=== PATIENT | female | born 1975 | race Caucasian/White ===

== ENCOUNTER 2019-04-10 14:57 | Emergency (ER) | payer MEDICAID, OTHER ==
[~2019-04-10] VITALS: Ht 154.9 cm; Wt 76.2 kg
--- NOTE | 2019-04-10 15:42 | NUR ---
Patient discharged to home in stable conditon. Written and verbal after care instructions given. Patient verbalizes understanding of instructions.
== END 2019-04-10 15:55 | disposition home or self-care (01) ==
LOC: ER 14:57
DX: S62.636A Displaced fracture of distal phalanx of right little finger, initial encounter for closed fracture (principal); W01.0XXA Fall on same level from slipping, tripping and stumbling without subsequent striking against object, initial encounter; Y93.89 Activity, other specified; Y92.89 Other specified places as the place of occurrence of the external cause; Y99.8 Other external cause status
CPT/HCPCS: 73140; A4663

== ENCOUNTER 2019-11-15 21:18 | Emergency (ER) | payer MEDICAID, OTHER ==
[~2019-11-15] VITALS: Ht 175.3 cm; Wt 77.1 kg
--- NOTE | 2019-11-15 21:36 | NUR ---
Dr Padilla into eval patient.
[2019-11-15 21:39] LABS: *BILIRUBIN,URIN NEGATIVE (NEGATIVE); *BLOOD, URINE 2+ (NEGATIVE); *CLARITY,URINE CLOUDY (CLEAR); *COLOR,URINE YELLOW (YELLOW); *KETONES,URINE NEGATIVE (NEGATIVE); *UROBILINOGEN,URINE 0.2 E.U./dl (NORMAL); LEUKOCYTE ESTERASE ,URINE 2+ (NEGATIVE); NITRITE, URINE NEGATIVE (NEGATIVE); PH,URINE 6.5 (5.0-8.0); UGLUCOSE NEGATIVE (NEGATIVE)
[2019-11-15 21:40] LABS: *URINE HCG, QUAL NEGATIVE (NEGATIVE)
[2019-11-15 21:50] LABS: BACTERIA,URINE FEW /HPF (NONE SEEN); SQUAMOUS EPITHELIAL CELL,UR FEW /HPF (NONE SEEN); WBC,URINE 20-50 /HPF (0-3)
[2019-11-15 22:08] VITALS: BP 125/88
== END 2019-11-15 22:09 | disposition home or self-care (01) ==
LOC: ER 21:20
DX: N39.0 Urinary tract infection, site not specified (principal)
CPT/HCPCS: 84703; 87086; A4663

== ENCOUNTER 2019-12-21 22:37 | Emergency (ER) | payer OTHER ==
[~2019-12-21] VITALS: Ht 175.3 cm; Wt 79.4 kg
[2019-12-21] MEDS ORDERED: CEPH-570 PO (22:49)
[2019-12-21] MEDS ORDERED: ACET-2605 PO (22:49)
--- NOTE | 2019-12-21 23:14 | NUR ---
Dr. Torres at bedside for MSE.
[2019-12-21 23:52] LABS: BASOPHILS # (AUTO) 0.1 K/uL (0.0-8.0); BASOPHILS % (AUTO) 1.3 % (0.0-2.0); EOSINOPHILS # (AUTO) 0.3 K/uL (0.0-0.7); EOSINOPHILS % (AUTO) 2.6 % (0.0-7.0); HEMATOCRIT 44.2 % (31.2-41.9); HEMOGLOBIN 15.1 g/dL (10.9-14.3); LYMPHOCYTES # (AUTO) 3.7 K/uL (20.0-40.0); LYMPHOCYTES % (AUTO) 32.7 % (20.5-51.5); MEAN CORPUSCULAR HEMOGLOBIN 30.9 uug (24.7-32.8); MEAN CORPUSCULAR HGB CONC 34 g/dL (32.3-35.6); MEAN CORPUSCULAR VOLUME 90.3 fL (75.5-95.3); MONOCYTES # (AUTO) 0.8 K/uL (2.0-10.0); NEUTROPHILS # (AUTO) 6.3 K/uL (1.8-8.9); NEUTROPHILS % (AUTO) 56.4 % (38.5-71.5); PLATELET COUNT (AUTO) 378 K/uL (179-408); WHITE BLOOD COUNT (AUTO) 11.2 K/uL (3.8-11.8)
[2019-12-21 23:56] LABS: CREATININE 0.9 mg/dL (0.6-1.3); POTASSIUM 3.9 mmol/L (3.5-5.1)
[2019-12-21] MEDS: VANCOMYCIN 1G/D5W 200 ML PIGGYBACK IV ONE ×2 (23:59)
[2019-12-21] MEDS ORDERED: MORPHINE SULFATE 4 MG/1 ML DISP.SYRIN ONE (23:59)
[2019-12-21] MEDS ORDERED: VANCOMYCIN IV 200 ML ONE (23:59)
[2019-12-22] MEDS ORDERED: MORPHINE SULFATE 4 MG/1 ML DISP.SYRIN IV ONE
[2019-12-22 00:02] LABS: BILIRUBIN,TOTAL 0.5 mg/dL (0.2-1.0); TOTAL PROTEIN, SERUM 8.4 g/dL (6.4-8.2)
--- NOTE | 2019-12-22 00:16 | NUR ---
S/W Bianka/from [facility] regarding patient transfer information. They will call us back auth.
--- NOTE | 2019-12-22 01:00 | NUR ---
Sapphire from [facility] called to clarify admission status of patient. Informed her that Dr. Torres wants her to be transferred to a hospital where there is a "hand surgeon specialty", so that appropriate care could be done to the infected pinky finger of R hand. Pt was not responsive to oral antibiotics, and would therefore need admission to the hospital with hand surgeon rounding. She will call me back after I fax all the clinicals and patient's face sheet. Faxing all the requirements at this time.
--- NOTE | 2019-12-22 01:02 | NUR ---
Per Dr. Torres, called [facility] to ask assistance for placement. No beds available at this time.
--- NOTE | 2019-12-22 01:03 | NUR ---
Followed up with Sapphire, and according to her, Dr. Harvey will call our doctor back shortly after reviewing the clinicals.
--- NOTE | 2019-12-22 01:45 | NUR ---
Received call from Sapphire that patient will be going to [place], pending COVID 19 (-) result.
--- NOTE | 2019-12-22 02:30 | NUR ---
Sapphire, clinical case manager, called back to follow up about Covid 19 test result, she emphasized that it is the only thing holding back the transfer. Informed her will continue to follow up. Lanette contacted, s/w massimo, informed me that they will be here in the next 10 to 15 minutes.
--- NOTE | 2019-12-22 02:43 | NUR ---
Informed Sapphire that COVID 19 antigen has just been picked up. Results should be ready within the next hour.
--- NOTE | 2019-12-22 02:45 | NUR ---
Patient remains stable at this time, resting in bed asleep with no signs of distress. No delayed reactions from Vancomycin administered via IV. All VS remains within normal limits.
--- NOTE | 2019-12-22 03:15 | NUR ---
S/w Puneet from [facility], stating that they just received the specimen and will call [facility] to run it. Sapphire telehealth case manager made aware, she said that the only thing holding the discharge is the COVID 19 test result
--- NOTE | 2019-12-22 04:39 | NUR ---
Faxed results to Sapphire and called her to confirm that she received the results, she received them and is currently speaking to [facility].
--- NOTE | 2019-12-22 05:19 | NUR ---
Received call from Sapphire HANLEY from [facility]). She informed me that patient has been accepted to [facility] Room 223-A, under Dr. Bhupendra Damico, # to call for report is: [phone]. [facility] will be picking up the patient from here within 45 minutes. Reservation # from [facility] is: [phone]. Will let patient know and give report to accepting facility.
--- NOTE | 2019-12-22 06:00 | NUR ---
Gave report to [facility], who accepted the patient. Patient picked up by 2 EMT's. Gave report to Juan Carlos as well, and handed all paperwork, including CD copy of the Xray. All belongings of patient are with her, verbalized that she has everything. Pt able to walk to [facility], and leave the hospital in stable condition.
== END 2019-12-22 06:00 | disposition short-term general hospital (02) ==
LOC: ER 22:38
DX: M86.8X4 Other osteomyelitis, hand (principal); S63.29 Dislocation of distal interphalangeal joint of finger; X58.XXXD Exposure to other specified factors, subsequent encounter
CPT/HCPCS: 36415; 73130; 80053; 85025; 87426; 96365; 96366; 96375; 99285; J2270; J3370; A4663; J7030

== ENCOUNTER 2020-03-28 22:07 | Emergency (ER) | payer OTHER ==
[~2020-03-28] VITALS: Ht 170.2 cm; Wt 68.0 kg
[~2020-03-28 22:07] MED LIST: ACET-2605 PO; CEPH-570 PO
--- NOTE | 2020-03-28 22:28 | NUR ---
ERMD at bedside for MSE
[2020-03-28 22:55] LABS: CREATININE 0.8 mg/dL (0.6-1.3); POTASSIUM 3.7 mmol/L (3.5-5.1)
[2020-03-28 22:56] LABS: BASOPHILS # (AUTO) 0.1 K/uL (0.0-8.0); BASOPHILS % (AUTO) 0.5 % (0.0-2.0); EOSINOPHILS # (AUTO) 0.3 K/uL (0.0-0.7); EOSINOPHILS % (AUTO) 1.8 % (0.0-7.0); HEMATOCRIT 42.5 % (31.2-41.9); HEMOGLOBIN 14.7 g/dL (10.9-14.3); LYMPHOCYTES # (AUTO) 3.9 K/uL (20.0-40.0); LYMPHOCYTES % (AUTO) 27.2 % (20.5-51.5); MEAN CORPUSCULAR HEMOGLOBIN 31.7 uug (24.7-32.8); MEAN CORPUSCULAR HGB CONC 35 g/dL (32.3-35.6); MEAN CORPUSCULAR VOLUME 91.5 fL (75.5-95.3); MONOCYTES # (AUTO) 0.8 K/uL (2.0-10.0); MONOCYTES % (AUTO) 5.8 % (0.0-11.0); NEUTROPHILS # (AUTO) 9.3 K/uL (1.8-8.9); NEUTROPHILS % (AUTO) 64.7 % (38.5-71.5); PLATELET COUNT (AUTO) 347 K/uL (179-408); RED BLOOD CELL COUNT(AUTO) 4.65 MIL/uL (3.63-4.92); WHITE BLOOD COUNT (AUTO) 14.3 K/uL (3.8-11.8)
[2020-03-28 23:03] LABS: BILIRUBIN,DIRECT 0.1 mg/dL (0.0-0.2); BILIRUBIN,TOTAL 0.5 mg/dL (0.2-1.0); TOTAL PROTEIN, SERUM 7.7 g/dL (6.4-8.2)
[2020-03-28 23:22] LABS: *URINE HCG, QUAL NEGATIVE (NEGATIVE)
[2020-03-28 23:33] VITALS: BP 129/88
--- NOTE | 2020-03-28 23:33 | NUR ---
Patient discharged to home in stable condition. Written and verbal after care instructions given. Patient verbalizes understanding of instructions. Stressed follow up or return to ER for worsening s/s.
== END 2020-03-28 23:34 | disposition home or self-care (01) ==
LOC: ER 22:08
DX: N93.8 Other specified abnormal uterine and vaginal bleeding (principal); D72.829 Elevated white blood cell count, unspecified; R03.0 Elevated blood-pressure reading, without diagnosis of hypertension
CPT/HCPCS: 36415; 84703; 85025; 85730; A4663

== ENCOUNTER 2022-05-10 20:03 | Emergency (ER) | payer OTHER ==
[~2022-05-10] VITALS: Ht 175.3 cm; Wt 77.1 kg
--- NOTE | 2022-05-10 20:45 | NUR ---
Dr. Sterling at bedside for MSE.
[2022-05-10] MEDS ORDERED: SULF1TAB48 PO (20:54)
[2022-05-10] MEDS ORDERED: CEPH500T PO (20:54)
[2022-05-10] MEDS ORDERED: LIDOCAINE HCL 1% 20 ML VIAL ONE (20:59)
[2022-05-10] MEDS ORDERED: CEFTRIAXONE 1 G VIAL ONE (20:59)
[2022-05-10] MEDS ORDERED: CEFTRIAXONE 1 G VIAL IM ONE (21:00)
[2022-05-10] MEDS ORDERED: SULFAMETH/TRIMETH 800/160 MG TABLET ONE (21:00)
[2022-05-10] MEDS ORDERED: SULFAMETH/TRIMETH 800/160 MG TABLET PO ONE (21:00)
[2022-05-10 21:15] VITALS: BP 147/68
== END 2022-05-10 21:15 | disposition home or self-care (01) ==
LOC: ER 20:07
DX: L03.115 Cellulitis of right lower limb (principal); R03.0 Elevated blood-pressure reading, without diagnosis of hypertension; E03.9 Hypothyroidism, unspecified; R73.03 Prediabetes
CPT/HCPCS: 99283; 96372; J0696; J3490; A4663

== ENCOUNTER 2022-05-11 17:53 | Emergency (ER) | payer OTHER ==
[~2022-05-11] VITALS: Ht 175.3 cm; Wt 77.1 kg
[~2022-05-11 17:53] MED LIST changes: +CEPH500T PO; +SULF1TAB48 PO
--- NOTE | 2022-05-11 19:06 | NUR ---
Called patient to be placed in room but was not present in the waiting room or outside of ER.
--- NOTE | 2022-05-11 19:35 | NUR ---
Patient was called to be triaged but was not present in the waiting room or outside of ER.
--- NOTE | 2022-05-11 20:00 | NUR ---
Called patient to be placed in room but patient was not present in the waiting room or outside of ER.
== END 2022-05-11 20:00 | disposition left against medical advice (07) ==
LOC: ER 17:54
DX: Z53.21 Procedure and treatment not carried out due to patient leaving prior to being seen by health care provider (principal)

== ENCOUNTER 2022-05-12 12:19 | Emergency (ER) | payer OTHER ==
[~2022-05-12] VITALS: Ht 175.3 cm; Wt 77.1 kg
[2022-05-12] MEDS ORDERED: CEFAZOLIN 2 G in IV DEXTROSE 5% 100 ML IV ONE (13:00)
[2022-05-12] MEDS ORDERED: CEFAZOLIN 1 G VIAL ONE (13:03)
[2022-05-12 13:06] LABS: HEMATOCRIT 40.1 % (31.2-41.9); MEAN CORPUSCULAR HEMOGLOBIN 31.4 uug (24.7-32.8); MEAN CORPUSCULAR VOLUME 90.7 fL (75.5-95.3); PLATELET COUNT (AUTO) 356 K/uL (179-408)
[2022-05-12 13:25] LABS: POTASSIUM 4.4 mmol/L (3.5-5.1)
--- NOTE | 2022-05-12 15:07 | NUR ---
IV removed. Catheter intact and site benign. Pressure and 4x4 gauze applied to site. No bleeding noted.
== END 2022-05-12 15:10 | disposition home or self-care (01) ==
LOC: ER 12:19
DX: L03.116 Cellulitis of left lower limb (principal); R73.03 Prediabetes; E03.9 Hypothyroidism, unspecified; G89.29 Other chronic pain
CPT/HCPCS: 99284; 96365; 87426; 80048; 85025; 87040; 36415; 83605; J0690 ×2; A4663